=== PATIENT | female | born 1985 | race Two or more races ===

== ENCOUNTER → 2021-01-16 | Outpatient (CLI) | payer SELFPAY ==
[2020-12-19 11:50] VITALS: BP 110/63
[~2021-01-16] MED LIST: IBUP-1027 PO; OXYC1TAB15 PO
== END ==
LOC: LAB 11:32
PROVIDERS: ATTEND Obstetrics & Gynecology
DX: Z01.812 Encounter for preprocedural laboratory examination (principal); Z20.822 Contact with and (suspected) exposure to COVID-19
CPT/HCPCS: U0003; U0005

== ENCOUNTER 2021-01-19 09:05 | Day surgery (SDC) | payer SELFPAY ==
[~2021-01-19] VITALS: Ht 165.1 cm; Wt 84.0 kg
[~2021-01-19 09:05] MED LIST changes: +HYDROmorphone 2 MG/ML VIAL IVP PRN; +IV RINGERS,LACTATED 1000ML 1,000 ML IV SCH; +MORPHINE SULFATE 2 MG/ML VIAL. IVP PRN; -OXYC1TAB15 PO; +PROCHLORPERAZINE 10 MG/2 ML VIAL. IVP PRN; +fentaNYL PF VIAL 100 MCG/2 ML VIAL IVP PRN
[2021-01-19 09:48] VITALS: BP 103/50
[2021-01-19] MEDS ORDERED: DEXAMETHASONE SOD PHOS 4 MG/ML VIAL ONE (09:52)
[2021-01-19] MEDS ORDERED: SEVOFLURANE 31 TO 60 MINUTES. IH ONE (09:52)
[2021-01-19] MEDS ORDERED: ONDANSETRON PF 4 MG/2 ML VIAL. ONE (09:52)
[2021-01-19] MEDS ORDERED: ROCURONIUM 50 MG/5 ML VIAL. ONE (09:52)
[2021-01-19] MEDS ORDERED: fentaNYL PF VIAL 100 MCG/2 ML VIAL ONE ×2 (09:52→11:01)
[2021-01-19] MEDS ORDERED: PROPOFOL 10 MG/ML (20ML) VIAL. IV ONE (09:52)
[2021-01-19] MEDS ORDERED: KETOROLAC 30 MG/ML VIAL. ONE (09:52)
[2021-01-19] MEDS ORDERED: LIDOCAINE 2% PF 5 ML VIAL. ONE (09:52)
[2021-01-19] MEDS ORDERED: BUPIVACAINE-EPI 0.25% 30 ML VIAL KIT. ONE (09:53)
[2021-01-19] MEDS ORDERED: NEOSTIGMINE METHYLSULFATE 5 MG/5 ML SYRINGE. ONE (10:30)
[2021-01-19] MEDS ORDERED: GLYCOPYRROLATE 1 MG/5 ML VIAL. ONE (10:30)
--- NOTE | 2021-01-19 10:44 | PDOC ---
BRIEF OPERATIVE NOTE Date: Jan 19, 2021 Pre-Op Diagnosis Sterilization Post-Op Diagnosis Same Procedure Performed [facility] [place]. Salpingectomy Surgeon Dr. Jose Strategic Planning Consultant Industrial Spray Painter: Sathya Anesthesia Type: General Blood Loss 5 ml Specimens Obtained mulu[place]. fallopian tubes Findings nml size uterus, nml fallopian tubes mulu[place]., nml ovaries [place]. Complications none Operative Note see dictation ANA JOSE Jr, MD Jan 19, 2021 10:44
--- NOTE | 2021-01-19 10:46 | DISCH ---
DISCHARGE INSTRUCTIONS Condition on Discharge Condition on Discharge: Stable Activity After Discharge Activity Instructions for Disc: Activity as tolerated Lifting Instructions after Dis: Do not lift >10 pounds Exercise Instruction after Dis: Progress as tolerated Driving Instructions after Dis: Do not drive today Weight Bearing Status after Di: Non weight bearing Diet after Discharge Diet after Discharge: Regular Diet Texture: Regular Wound Incision Care Wound/Incision Care: No wound care needed Contacting the DRDina after DC Call your doctor for: Concerns you may have Follow-Up Follow up with: Dr. Jose in 1 week Treatment/Equipment after DC Adaptive Equipment Issued: None ANA JOSE Jr, MD Jan 19, 2021 10:45
[2021-01-19] MEDS ORDERED: OXYC1TAB15 PO (11:26)
[2021-01-19] MEDS ORDERED: oxyCODONE/APAP 5/325 1 TAB TABLET ONE (11:34)
[2021-01-19] MEDS ORDERED: oxyCODONE/APAP 5/325 1 TAB TABLET PO ONE (11:45)
[2021-01-19 12:00] VITALS: BP 112/64
--- NOTE | 2021-01-19 12:03 | OP ---
DATE OF SURGERY: 01/19/2021 PREOPERATIVE DIAGNOSIS: Sterilization. POSTOPERATIVE DIAGNOSIS: Sterilization. PROCEDURE: Laparoscopic bilateral salpingectomy. SURGEON: Madi Jose MD. RADIAL DRILL OPERATOR: Sathya. ANESTHESIA: General. ESTIMATED BLOOD LOSS: 5 mL. COMPLICATIONS: None. FINDINGS: Normal size uterus, normal fallopian tubes and ovaries bilaterally. SUMMARY: A 35-year-old female who desired permanent sterilization and was counseled on the risks, benefits and expectations as well as the failure rate and desired to proceed. DESCRIPTION OF PROCEDURE: The patient was taken to surgery suite and placed in dorsal lithotomy position, was prepped with Betadine for vaginal prep and ChloraPrep for abdominal prep. After adequate anesthesia, a bivalve speculum was placed vaginally. Anterior lip of the cervix grasped with single tooth tenaculum. Uterine acorn manipulator was then placed. The bivalve speculum was removed. Attention was now placed on the abdomen. A small transverse skin incision was made just below the umbilicus with a scalpel. The Veress needle was then placed through the infraumbilical incision site. The abdomen was allowed to insufflate up to 1.5 liters of CO2 gas. The Veress needle was then removed. A 5 mm trocar was placed. The scope was positioned. Uterus was visualized and appeared normal size. Normal fallopian tubes and ovaries bilaterally. Two additional incisions were made in the left lower quadrant in which a 5 mm trocar and an 8 mm trocar was placed with the aid of graspers and the EnSeal device. The right fallopian tube was dissected away from the right adnexa and removed. Same process took place with the left adnexa. The areas were hemostatic. The trocars were then removed under direct visualization. The abdomen was allowed to deflate as much as possible along with mechanical manipulation. Three skin incisions were reapproximated using 4-0 Vicryl suture in a subcuticular manner. A 0.25% Marcaine with epinephrine was injected in each incision site. Uterine acorn manipulator and single tooth tenaculum were removed. The patient tolerated the procedure well and was taken to recovery room in stable condition. Sponge and needle count correct x 3. KEYUR/NANCY DR: KEYUR/marielle TID: [id number]
--- NOTE | 2021-01-23 19:18 | PATHOLOGY ---
[facility] Accession Number: [id number] . 01 Material submitted: . PART A: fallopian tube - RIGHT FALLOPIAN TUBE. Modifiers: right PART B: fallopian tube - LEFT FALLOPIAN TUBE. Modifiers: left . 01 Clinical history: . STERILIZATION LAPAROSCOPIC BILATERAL SALPINGECTOMY . 02 Diagnosis: A. Laparoscopic right salpingectomy: - Segment of fallopian tube confirmed. . B. Laparoscopic left salpingectomy: - Segment of fallopian tube confirmed, with paratubal cyst. (JPM:darlene; 01/23/2021) S 01/23/2021 1122 Local . 02 Electronically signed: . Gabe Bermudez MD, Pathologist NPI- [id number] . 01 Gross description: . A. Fixative: Formalin Labeled: Right fallopian tube Measurements: 5.9 cm in length x 0.9 cm in diameter Fimbriated: Yes External surface: Smooth, fernandez-pink and glistening Cut Surface: Fernandez-white 0.5 cm lumen A1 Corporate Development Analyst fallopian tube and fimbriated end . B. Fixative: Formalin Labeled: Left fallopian tube Measurements: 5.8 cm in length x 0.9 cm in diameter Fimbriated: Yes External surface: Smooth, fernandez-pink and glistening Cut Surface: Fernandez-white 0.5 cm lumen B1 Corporate Development Analyst fallopian tube and fimbriated end ([facility]; 01/20/2021) GZA/GZA 01/20/2021 0902 Local . 02 Pathologist provided ICD-10: N83.8, Z30.2 . 02 CPT . 287691, [id number] Specimen Comment: A courtesy copy of this report has been sent to [phone] Specimen Comment: Report sent to Performed at: 01 [facility] [address], [place], [place] [id number] MD Rashi Yadav MD Phone: [phone] Performed at: 02 [facility] [address] [place], [place] [id number] MD Gabe Bermudez MD Phone: [phone]
== END 2021-01-19 12:11 | disposition home or self-care (01) ==
LOC: SURG 09:05
PROVIDERS: ATTEND Obstetrics & Gynecology
DX: Z30.2 Encounter for sterilization (principal); Z79.899 Other long term (current) drug therapy; Z98.890 Other specified postprocedural states
CPT/HCPCS: 58661; 81025; A4930; A6219; J1100; J1885; J2405; J2704; J2710; J3010; J3490